=== PATIENT | female | born 1995 | race Hispanic/Latino ===

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

== ENCOUNTER 2017-05-27 07:52 | Inpatient (IN) | payer OTHER ==
[~2017-05-27] VITALS: Ht 160 cm; Wt 68.0 kg
[~2017-05-27 07:52] MED LIST: BACT800T5 PO; CLEO300C2 PO; TOBR0.3S OP
[2017-05-27 08:46] LABS: MEAN CORPUSCULAR HGB CONC 33.7 g/dl (32.0-36.5); MEAN CORPUSCULAR VOLUME 89.1 fl (80.0-96.0); PLATELET COUNT, AUTOMATED 450 10^3/uL (150-450); RED CELL DISTRIBUTION WIDTH 12.4 % (11.5-14.5); WHITE BLOOD COUNT 6.3 10^3/uL (4.0-10.0)
[2017-05-27 09:02] LABS: CONTROL LINE HCG INT CTR LINE PRESENT
[2017-05-27 09:08] LABS: METHADONE URINE NEGATIVE (NEGATIVE)
[2017-05-27 09:18] LABS: ALBUMIN 3.9 GM/DL (3.2-5.2); ALBUMIN/GLOBULIN RATIO 1.15 (1.00-1.93); ALKALINE PHOSPHATASE 72 U/L (45-117); ALT/SGPT 24 U/L (12-78); ANION GAP 7 MEQ/L (8-16); AST/SGOT 18 U/L (7-37); BILIRUBIN,DIRECT < 0.1 MG/DL (0.0-0.2); BILIRUBIN,TOTAL 0.2 MG/DL (0.2-1.0); BLOOD UREA NITROGEN 12 MG/DL (7-18); CALCIUM LEVEL 8.8 MG/DL (8.5-10.1); CARBON DIOXIDE LEVEL 25 MEQ/L (21-32); CHLORIDE LEVEL 106 MEQ/L (98-107); CREATININE FOR GFR 0.59 MG/DL (0.55-1.02); GLUCOSE, FASTING 88 MG/DL (70-105); POTASSIUM SERUM 4.1 MEQ/L (3.5-5.1); SODIUM LEVEL 138 MEQ/L (136-145); TOTAL PROTEIN 7.3 GM/DL (6.4-8.2)
[2017-05-27 11:14] VITALS: BP 119/83
[2017-05-27] MEDS ORDERED: MOM 30ML SUSPENSION UDC PO PRN (14:00)
[2017-05-27] MEDS ORDERED: MAALOX 30 ML SUSP *UDC PO PRN (14:00)
[2017-05-27] MEDS ORDERED: ACETAMINOPHEN TAB 650MG DOSE (2X325MG) PO PRN (14:00)
[2017-05-27] MEDS ORDERED: LORazepam 2 MG/ML VIAL (J2060) IV PRN (14:00)
[2017-05-27] MEDS: SERTRALINE HCL 50 MG TAB PO SCH (14:27)
[2017-05-27] MEDS: traZODone 50 MG TAB PO PRN (21:16)
[2017-05-28 06:30] VITALS: BP 120/62
[2017-05-28] MEDS: SERTRALINE HCL 50 MG TAB PO SCH (09:52)
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
[2017-05-28 18:10] VITALS: BP 141/85
[2017-05-28] MEDS: traZODone 50 MG TAB PO PRN (22:05)
[2017-05-29 06:39] VITALS: BP 107/54
[2017-05-29] MEDS: SERTRALINE HCL 50 MG TAB PO SCH (08:10)
[2017-05-29 20:27] VITALS: BP 143/90
[2017-05-30] MEDS: traZODone 50 MG TAB PO PRN (00:02)
[2017-05-30 06:40] VITALS: BP 101/56
[2017-05-30] MEDS: SERTRALINE HCL 50 MG TAB PO SCH (08:26)
--- NOTE | 2017-05-30 11:29 | IPN ---
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 MEDICATIONS: - Zoloft 50 mg by mouth every morning - trazodone 50 mg by mouth daily at bedtime as needed for insomnia SUBJECTIVE: "I am feeling about the same". OBJECTIVE: No major changes from admission. Patient continues depressed with sad restricted facial expression, psychomotor retardation. Patient has minimal interaction with other patients and staff. There is no evidence of psychotic symptoms. No auditory or visual hallucinations or delusions. Patient is tolerating well the medication. MENTAL STATUS EXAMINATION: Patient dressed in [facility]. Patient is cooperative during exam, has fair eye contact. Speech is low and monotone. Mood is depressed and anxious. Affect is restricted. No evidence of psychotic symptoms. No auditory or visual hallucinations or delusions. Short and intermediate frame tender memory are intact. Patient is fully oriented. Associations are intact. Thinking is logical. Thought content is appropriate. Patient is able to contract for safety while in the hospital. Insight and judgment is limited. ASSESSMENT: 1. Depression. 2. Suicidal ideation. PLAN: 1. Continue with Zoloft 50 mg by mouth daily every morning. 2. Continue trazodone 50 mg by mouth daily at bedtime as needed for insomnia. 3. Continue medication management, individual and group therapy.
--- NOTE | 2017-05-30 12:42 | HPE ---
DATE OF ADMISSION: 05/29/2017 Please refer to psychiatric history and evaluation for further details on this admission. This examination and history is intended for medical issues which may need treatment, followup or consult on this 22-year-old female. PRIMARY CARE PROVIDER: [facility]. ALLERGIES: SHELLFISH. SOCIAL HISTORY: She is . 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 EtOH three times a year. Smokes none. Recreational drug use none. PAST MEDICAL HISTORY: Chronic back and hip pain which she is going to [facility] for. PAST SURGICAL HISTORY: Negative. HOME MEDICATIONS: None. FAMILY HISTORY: Noncontributory. LABORATORY STUDIES: CBC normal. BUN and creatinine normal. Electrolytes normal. Toxicology screen negative. [employer] [facility] was done and other than chronic back and hip pain for which she is going to [facility] was negative. PHYSICAL EXAMINATION: 22-year-old cooperative female in no acute distress. Height 63 inches, weight 67 kg. BMI 26.2. Blood pressure 107/54, pulse 74, respirations 16. Temperature 98.8. The patient is alert and oriented times three. Pupils equal and reactive to light. Extraocular movements intact. Cornea and sclera clear. Conjunctiva normal. No facial asymmetry. Pharynx, tongue and gums pink and moist. Tongue is midline. Neck is supple, without lymphadenopathy. No thyromegaly. No goiter. Chest clear to auscultation, without wheeze or retraction. Heart is regular. Abdomen benign. Bowel sounds positive. Genitourinary ()/Rectal: Not done. Extremities show equal strength, full range of motion. No cyanosis, clubbing or edema. Peripheral pulses equal and palpable bilaterally. Skin is warm and dry. IMPRESSION AND PLAN: 1. Psychiatric plan per psychiatry. 2. Chronic back and hip pain. Continue followup with [facility] after discharge. No other acute medical issues.
--- NOTE | 2017-05-30 13:26 | MHIPNPDOC ---
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 VITAL SIGNS: See below. NEW TEST RESULTS: Acetaminophen (Tylenol Tab) 650 mg Q6HP PRN PO HEADACHE or DISCOMFORT Last administered on 05/28/17 14:07; Start 05/27/17 at 14:00; Stop 06/26/17 at 13:59 Al Hydrox/Mg Hydrox/Simethicone (Mylanta) 30 ml Q4HP PRN PO HEARTBURN/INDIGESTION; Start 05/27/17 at 14:00; Stop 06/26/17 at 13:59 Lorazepam (Ativan) 0.5 mg Q6HP PRN IV AGITATION/ANXIETY; Start 05/27/17 at 14: 00; Stop 06/03/17 at 13:59 Magnesium Hydroxide (Milk Of Magnesia) 30 ml DAILYPRN PRN PO CONSTIPATION; Start 05/27/17 at 14:00; Stop 06/26/17 at 13: 59 Sertraline HCl (Zoloft) 50 mg DAILY PO Last administered on 05/30/17 08:26 ; Start 05/27/17 at 09:00; Stop 06/26/17 at 08:59 Trazodone HCl (Desyrel) 50 mg QHSP PRN PO INSOMNIA Last administered on 05/30/17 00:02; Start 05/27/17 at 14:00; Stop 06/26/17 at 13:59 CURRENT MEDICATIONS: See below. MENTAL STATUS EXAMINATION: Patient is a 22-year old female, who is alert, cooperative, dressed in hospital clothes, pleasant. Speech: Is spontaneous and fluent. Language skills are Fair. Thought processes including: Intact. Thought content: Focused on being discharged on Friday. Abstract reasoning, and computation: Good. Description of associations: Good. Description of abnormal or psychotic thoughts: Denies SI/HI, denies thought delusions, denies A/V hallucinations Judgment: improving Insight: Improvin g. Orientation: Oriented x 3. Recent and remote memory: Intact. Attention span and concentration: Fair. Language: Normal. Fund of knowledge: Fair. Mood: Euthymic. Affect: Euthymic. DIAGNOSES: 1. Major Depressive Disorder 2. R/O PTSD versus Unspecified psychotic d/o ASSESSMENT: patient asked for permission to for her to come in to visit her. She would have liked to be discharged today but once again I explained is not possible due to [place] policies. She is not suicidal/homicidal at this time. I believe the patient might have experienced auditory hallucinations once because she is depressed. She has not had them again. She also experienced trauma at a young age, so it could be realted to trauma, but she denies other PTSD symptoms. MANAGEMENT PLAN: will keep her on the same medications. Will d/c Friday TIME SPENT: 20 minutes. Vital Signs Vital Signs Date Time Temp Pulse Resp B/P (MAP) Pulse Ox O2 Delivery O2 Flow Rate FiO2 05/30/17 06:40 98.1 72 16 101/56 (71) Room Air 05/27/17 11:14 100 Current Medications Current Medications Acetaminophen (Tylenol Tab) 650 mg Q6HP PRN PO HEADACHE or DISCOMFORT Last administered on 05/28/17 14:07; Start 05/27/17 at 14:00; Stop 06/26/17 at 13 :59 Al Hydrox/Mg Hydrox/Simethicone (Mylanta) 30 ml Q4HP PRN PO HEARTBURN/ INDIGESTION; Start 05/27/17 at 14:00; Stop 06/26/17 at 13:59 Lorazepam (Ativan) 0.5 mg Q6HP PRN IV AGITATION/ANXIETY; Start 05/27/17 at 14: 00; Stop 06/03/17 at 13:59 Magnesium Hydroxide (Milk Of Magnesia) 30 ml DAILYPRN PRN PO CONSTIPATION; Start 05/27/17 at 14:00; Stop 06/26/17 at 13:59 Sertraline HCl (Zoloft) 50 mg DAILY PO Last administered on 05/30/17 08:26; Start 05/27/17 at 09:00; Stop 06/26/17 at 08:59 Trazodone HCl (Desyrel) 50 mg QHSP PRN PO INSOMNIA Last administered on 00:02; Start 05/27/17 at 14:00; Stop 06/26/17 at 13:59 Allergies Coded Allergies: Shellfish Allergy (Verified Allergy, Unknown, 12/07/16) DAVIS REED MD May 30, 2017 13:26
[2017-05-30 18:00] VITALS: BP 128/67
[2017-05-31 06:28] VITALS: BP 120/72
[2017-05-31] MEDS: SERTRALINE HCL 50 MG TAB PO SCH (08:49)
--- NOTE | 2017-05-31 17:46 | MHIPN ---
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 MEDICATIONS: - Zoloft 50 mg by mouth every morning - trazodone 50 mg by mouth at bedtime as needed for insomnia - Ativan 0.5 mg as needed for anxiety SUBJECTIVE: "I'm feeling much better." OBJECTIVE: The patient has improved significantly from admission. The patient no longer has psychomotor retardation. She is able to smile and is interacting with other patients and staff. The patient is denying auditory or visual hallucinations. No evidence of psychotic symptoms. The patient is motivated for treatment. The patient reports inability to sleep but does not want to take trazodone because of excessive sedation. We discussed the treatment plan. MENTAL STATUS EXAMINATION: The patient dressed in [facility]. The patient is cooperative, has fair eye contact. Speech is normal in rate, volume and articulation. Mood is slightly depressed but significantly improved from admission. Affect is congruent with mood. No delusions, no hallucinations. Memory, attention and concentration are fair. The patient is able to contract for safety. Insight and judgment are fair. ASSESSMENT: 1. Depression. 2. Suicidal ideation. PLAN: 1. Continue Zoloft 50 mg by mouth every morning. 2. Decrease trazodone to 25 mg by mouth at bedtime as needed for insomnia. 3. Continue medication management, individual and group therapy.
[2017-05-31 18:00] VITALS: BP 120/65
[2017-05-31] MEDS ORDERED: traZODone 25MG PER 1/2 TABLET PO PRN (23:30)
[2017-06-01 06:35] VITALS: BP 103/69
[2017-06-01] MEDS: SERTRALINE HCL 50 MG TAB PO SCH (08:56)
[2017-06-01 18:00] VITALS: BP 126/67
[2017-06-02 06:49] VITALS: BP 112/58
[2017-06-02] MEDS: SERTRALINE HCL 50 MG TAB PO SCH (08:36)
[2017-06-02] MEDS ORDERED: SERT50TA PO (09:50)
[2017-06-02] MEDS ORDERED: TRAZ25TA PO (09:51)
[2017-06-02] MEDS ORDERED: traZODone 50 MG TAB PO PRN (10:00)
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
== END 2017-06-02 10:50 | disposition home or self-care (01) | DRG 885 ==
LOC: M ED 08:41 → M ED INP 10:03 → M PSY 10:58
PROVIDERS: ADMIT Psychiatry & Neurology Psychiatry; ATTEND Psychiatry & Neurology Psychiatry
DX: F33.2 Major depressive disorder, recurrent severe without psychotic features (principal); R45.851 Suicidal ideations; F43.10 Post-traumatic stress disorder, unspecified; Z91.013 Allergy to seafood; M25.559 Pain in unspecified hip; M54.9 Dorsalgia, unspecified; Z79.899 Other long term (current) drug therapy

== ENCOUNTER 2018-01-23 08:00 | Emergency (ER) | payer OTHER ==
[2018-01-23 20:58] LABS: HEMATOCRIT 39.6 % (36.0-47.0); HEMOGLOBIN 13.3 g/dl (12.0-15.5); MEAN CORPUSCULAR HEMOGLOBIN 29.4 pg (27.0-33.0); MEAN CORPUSCULAR HGB CONC 33.6 g/dl (32.0-36.5); MEAN CORPUSCULAR VOLUME 87.6 fl (80.0-96.0); PLATELET COUNT, AUTOMATED 461 10^3/uL (150-450); RED BLOOD COUNT 4.52 10^6/uL (4.00-5.40); RED CELL DISTRIBUTION WIDTH 12.4 % (11.5-14.5); WHITE BLOOD COUNT 10.6 10^3/uL (4.0-10.0)
[2018-01-23 21:12] LABS: CONTROL LINE HCG INT CTR LINE PRESENT; HCG, SERUM QUALITATIVE NEGATIVE (NEGATIVE)
[2018-01-23 21:15] LABS: AMPHETAMINES LEVEL URINE NEGATIVE (NEGATIVE); BARBITURATES URINE NEGATIVE (NEGATIVE); BENZODIAZEPINES URINE NEGATIVE (NEGATIVE); CANNABINOIDS URINE NEGATIVE (NEGATIVE); COCAINE METABOLITE URINE NEGATIVE (NEGATIVE); METHADONE URINE NEGATIVE (NEGATIVE); OPIATES URINE NEGATIVE (NEGATIVE); PHENCYCLIDINE URINE NEGATIVE (NEGATIVE)
[2018-01-23 21:26] LABS: ALBUMIN 4.1 GM/DL (3.2-5.2); ALKALINE PHOSPHATASE 81 U/L (45-117); ALT/SGPT 17 U/L (12-78); ANION GAP 7 MEQ/L (8-16); AST/SGOT 10 U/L (7-37); BILIRUBIN,DIRECT < 0.1 MG/DL (0.0-0.2); BILIRUBIN,TOTAL 0.2 MG/DL (0.2-1.0); BLOOD UREA NITROGEN 8 MG/DL (7-18); CARBON DIOXIDE LEVEL 28 MEQ/L (21-32); CHLORIDE LEVEL 108 MEQ/L (98-107); CREATININE FOR GFR 0.75 MG/DL (0.55-1.30); ETHYL ALCOHOL (ETHANOL) 0.004 % (0.000-0.010); GLUCOSE, FASTING 83 MG/DL (70-100); POTASSIUM SERUM 3.8 MEQ/L (3.5-5.1); SALICYLATE LEVEL < 1.7 MG/DL (5.0-30.0); SODIUM LEVEL 143 MEQ/L (136-145); THYROID STIMULATING HORMONE 0.599 uIU/ML (0.463-3.98); TOTAL PROTEIN 8.2 GM/DL (6.4-8.2)
[2018-01-23 21:27] LABS: ACETAMINOPHEN LEVEL < 2.0 UG/ML (10.0-30.0)
[2018-01-23 21:55] LABS: KETONE, URINE AUTO RFX NEGATIVE (NEGATIVE); LEUKOCYTE ESTERASE UR AUTO RFX 2+ (NEGATIVE); MUCUS, URINE RFX SMALL (NEGATIVE); NITRITE, URINE AUTO RFX NEGATIVE (NEGATIVE); RBC, URINE AUTO RFX 19 /HPF (0-3); SPECIFIC GRAVITY UR AUTO RFX 1.005 (1.002-1.035); SQUAM EPITHELIAL CELL UR AURFX 1 /HPF (0-6); WBC, URINE AUTO RFX TNTC /HPF (0-3)
[2018-01-23] MEDS: BACTRIM 160MG/800MG DS TAB PO (22:21)
== END 2018-01-23 22:29 | disposition home or self-care (01) ==
LOC: M ED 22:29
DX: N30.90 Cystitis, unspecified without hematuria (principal); F33.9 Major depressive disorder, recurrent, unspecified; Z79.899 Other long term (current) drug therapy; Z91.013 Allergy to seafood
CPT/HCPCS: 76775